=== PATIENT | female | born 1995 | race Caucasian/White ===

== ENCOUNTER 2020-09-04 09:31 | Outpatient (CLI) | payer BC, SELFPAY ==
--- NOTE | ~2020-09-04 | MR_ITS ---
EXAMINATION: MR knee LT wo con DATE: 09/04/2020 10:11 INDICATION: Left knee joint effusion and generalized left knee pain and limited range of motion 3 wee ks post fall TECHNIQUE: Magnetic resonance imaging (MRI) of the left knee was performed without intravenous contra st. Sequences included coronal PD-weighted FSE, coronal PD-weighted FS FSE, sagittal T2-weighted FSE , sagittal PD-weighted FS FSE and axial PD weighted fat saturated FSE. COMPARISON: None. FINDINGS: Medial compartment: Medial meniscus is normal. There is a small nondisplaced fracture along the posterior margin of the a rticular surface of the medial tibial plateau. Articular cartilage is otherwise normal. Lateral compartment: Wrisberg rip with longitudinal vertical tear in the peripheral third of the posterior horn of the lat eral meniscus beginning at the junction of the posterior horn and its confluence with the posterior m eniscofemoral ligament of W[place]berg. Prominent bone marrow edema surrounding a curvilinear low signal intensity subarticular impaction fracture line underlying the lateral sulcus at the junction of the a nterior weightbearing and trochlear articular surface of the lateral femoral condyle. There is subtle increased depth of the sulcus. The overlying cartilage appears to remain intact with normal cartilag e throughout the remainder of the lateral compartment. Patellofemoral compartment: Articular cartilage is normal. Ligaments and tendons: Complete tear of the anterior cruciate ligament, the distal portion which is reflected anteriorly con sistent with a cyclops lesion. The posterior cruciate ligament is normal. The fibular collateral liga ment complex is normal. As previously noted there is a tear of proximal aspect of the component of th e medial collateral ligament. There is marrow edema extending along the superficial and deep margins of the otherwise intact appearing superficial component of the ligament consistent with low-grade spr ain. The extensor mechanism is normal. The visualized medial and lateral hamstring tendons as well as the iliotibial band are normal. Fluid: Small left knee joint effusion. Filling defect at the medial gutter of the suprapatellar pouch which conforms to the contours of the pouch and with heterogeneous increased T1 and T2 signal most consiste nt with clot. No loose osteochondral bodies identified. Osseous/other: In addition to the previous noted nondisplaced fractures along the posterior margin of the medial tib ial plateau and at the lateral sulcus of the lateral femoral condyle there is a bone contusion withou t definitive fracture line along the posterior margin of the lateral tibial plateau. The constellatio n of bone injuries is most consistent with an anterior tibial subluxation injury pattern likely occur ring in conjunction with the anterior cruciate ligament tear. Marrow signal is otherwise normal with no other fractures or pathologic marrow replacing process. IMPRESSION: 1. Constellation of findings consistent with an anterior tibial subluxation injury. These include com plete tear of the anterior cruciate ligament, partial tear of the medial collateral ligament, low-gra de at the superficial component of the ligament and at least partial if not complete tear of the deep component and finally nondisplaced fracture at the lateral sulcus of the lateral femoral condyle, th e posterior rim of the medial tibial plateau and bone contusion along the posterior rim of the latera l tibial plateau. 2. Secondary small hemarthrosis with small amount of likely organized clot at the medial gutter of th e suprapatellar pouch. Reviewed, dictated and finalized at location A.
== END 2020-09-04 09:32 ==
PROVIDERS: Visit Provider Internal Medicine
DX: S83.512A Sprain of anterior cruciate ligament of left knee, initial encounter (principal); S83.012A Lateral subluxation of left patella, initial encounter; M25.462 Effusion, left knee
CPT/HCPCS: 73721